=== PATIENT | male | born 1950 | race Caucasian/White ===

== ENCOUNTER 2020-11-02 04:07 | Emergency (ER) | payer MEDICARE ==
--- NOTE | 2020-11-02 04:40 | EDM.PDOC ---
ED HPI GENERAL MEDICAL PROBLEM - General Chief Complaint: Neurological Problem Stated Complaint: MEDICAL VIA TRI Time Seen by Provider: 11/02/20 04:25 Source of Information: Reports: Patient, EMS, Family History Limitations: Reports: No Limitations - History of Present Illness INITIAL COMMENTS - FREE TEXT/NARRATIVE: Yao is a 69-year-old male presenting to the ED via [facility] for evaluation of seizure. Yao is a type I diabetic who is on an insulin pump who was in his usual state of health until 0300 hours this morning when the patient's awoke to him having a grand mal seizure in the bed next to her. She states that his right arm was extended above his head and his left arm was across his chest, he was having gurgling respirations and was absolutely rigid and unresponsive. She states this lasted about 10 minutes. She checked a blood sugar on him during the seizure and it was 101. When EMS arrived they checked a blood sugar and it was 99. The patient does have a history for nocturnal hypoglycemia. He has never had any seizures before and is on no other medications other than the insulin pump. He was wearing a CPAP as he has severe obstructive sleep apnea. The seizure was followed by a post ictal period when the patient was confused and combative. It took a considerable amount of time before the patient started to recognize his . He denies any head trauma, sleep deprivation, new medications, but did get a Covid vaccine several weeks ago and is scheduled for the second dose tomorrow. - Related Data Allergies Allergy/AdvReac Type Severity Reaction Status Date / Time No Known Allergies Allergy Verified 11/02/20 04:13 Home Meds: Home Meds Insulin Aspart [NovoLOG] 60 units SQ DAILY 11/02/20 [History] Past Medical History HEENT History: Reports: Impaired Vision Respiratory History: Reports: Sleep Apnea Other Respiratory History: cpap Musculoskeletal History: Reports: Arthritis Endocrine/Metabolic History: Reports: Diabetes, Type I, Obesity/BMI 30+ Other Endocrine/Metabolic History: dx in 1973 - Infectious Disease History Infectious Disease History: Reports: Chicken Pox, Measles, Mumps, Shingles - Past Surgical History Head Surgeries/Procedures: Reports: None Respiratory Surgical History: Reports: None Endocrine Surgical History: Reports: None Musculoskeletal Surgical History: Reports: None Dermatological Surgical History: Reports: Plastic Surgical Reconstruction/Repair Social & Family History - Tobacco Use Tobacco Use Status *Q: Never Tobacco User Second Hand Smoke Exposure: No - Caffeine Use Caffeine Use: Reports: Coffee - Recreational Drug Use Recreational Drug Use: No ED ROS GENERAL - Review of Systems Review Of Systems: See Below Constitutional: Reports: No Symptoms HEENT: Reports: No Symptoms Respiratory: Reports: No Symptoms Cardiovascular: Reports: No Symptoms Endocrine: Reports: No Symptoms GI/Abdominal: Reports: No Symptoms : Reports: No Symptoms Musculoskeletal: Reports: Back Pain (Muscular), Muscle Pain Skin: Reports: No Symptoms Neurological: Reports: Seizure Psychiatric: Reports: No Symptoms Hematologic/Lymphatic: Reports: No Symptoms Immunologic: Reports: No Symptoms - Physical Exam Exam: See Below Exam Limited By: No Limitations General Appearance: Alert, Lethargic Eye Exam: Bilateral Eye: EOMI, PERRL Nose: Normal Inspection, Normal Mucosa Throat/Mouth: Normal Lips, Normal Teeth, Normal Oropharynx, Normal Voice, No Airway Compromise, Other (Significant bruising of the tongue secondary to biting.) Head Exam: Atraumatic, Normocephalic Neck: Normal Inspection, Supple, Non-Tender, Full Range of Motion Respiratory/Chest: No Respiratory Distress, Lungs Clear, Normal Breath Sounds Cardiovascular: Normal Peripheral Pulses, Regular Rate, Rhythm, No Murmur GI/Abdominal: Normal Bowel Sounds, Soft, Non-Tender Neuro Exam (Abbreviated): Alert, Oriented, CN II-XII Intact, Normal Cognition, No Motor/Sensory Deficits, Slow to Respond Back Exam: Normal Inspection, Full Range of Motion Extremities: Normal Inspection, Normal Range of Motion Psychiatric: Anxious Skin Exam: Warm, Dry, Intact, Normal Color Course - Vital Signs Last Recorded V/S: Last Vital Signs Temp 36.3 C 11/02/20 04:30 Pulse 66 11/02/20 04:30 Resp 13 11/02/20 04:30 BP 134/71 11/02/20 04:30 Pulse Ox 96 11/02/20 04:30 - Orders/Labs/Meds Orders: Active Orders 24 hr Category Date Time Status Head wo Cont [CT] Stat Exams 11/02/20 04:26 Ordered COMPREHENSIVE METABOLIC PN,CMP [CHEM] Stat Lab 11/02/20 04:26 Ordered CREATINE KINASE,CK [CHEM] Stat Lab 11/02/20 04:26 Ordered TROPONIN I [CHEM] Stat Lab 11/02/20 04:26 Ordered Labs: Laboratory Tests 03/07/1511/02/20 11/02/20 Range/Units 04:38 04:38 04:43 WBC 8.7 (4.5-11.0) K/uL RBC 4.94 (4.30-5.90) M/uL Hgb 14.9 (12.0-15.0) g/dL Hct 44.4 (40.0-54.0) % MCV 90 (80-98) fL MCH 30 (27-31) pg MCHC 34 (32-36) % Plt Count 279 (150-400) K/uL Neut % (Auto) 68 H (36-66) % Lymph % (Auto) 20 L (24-44) % [place] % (Auto) 9 H (2-6) % Eos % (Auto) 3 (2-4) % Baso % (Auto) 1 (0-1) % ABG Hemoglobin 15.1 (13.5-18.0) g/dL ABG Oxyhemoglobin 85.2 % ABG Carboxyhemoglobin 1.6 (0.0-1.6) % ABG Methemoglobin 0.9 % VBG pH 7.470 H (7.350-7.450) VBG pCO2 27.9 mm/Hg VBG pO2 50.8 mm/Hg VBG HCO3 20.1 mmol/L VBG Total CO2 17.2 mmol/L VBG O2 Saturation 87.4 VBG O2 Content 18.1 %vol VBG Base Excess -1.8 mm/L O2 Delivery Device Room air Urine Color Yellow (YELLOW) Urine Appearance Cloudy A (CLEAR) Urine pH 6.0 (5.0-8.0) Ur Specific Okay >= 1.030 (1.008-1.030) Urine Protein 30 H (NEGATIVE) mg/dL Urine Glucose (UA) Negative (NEGATIVE) mg/dL Urine Ketones Trace H (NEGATIVE) mg/dL Urine Occult Blood Negative (NEGATIVE) Urine Nitrite Negative (NEGATIVE) Urine Bilirubin Negative (NEGATIVE) Urine Urobilinogen 0.2 (0.2-1.0) EU/dL Ur Leukocyte Esterase Negative (NEGATIVE) Urine RBC 0-5 (0-5) Urine WBC 0-5 (0-5) Ur Epithelial Cells Rare Amorphous Sediment Not seen Urine Bacteria Not seen Urine Mucus Many - Re-Assessments/Exams Free Text/Narrative Re-Assessment/Exam: 11/02/20 04:40 I reviewed the twelve-lead EKG presented by [facility] alicia david normal sinus rhythm with a rate of 73 bpm. Normal SC interval. Normal QRS morphology. No significant ST changes. Impression: Normal EKG. 11/02/20 05:[address] head without contrast. There is no evidence for acute intracranial bleed or loss of west-white ribbon. There is no mass- effect or midline shift. 11/02/20 05:45 I discussed the case with Dr. Jackson, neurologist from [facility] who recommended that the patient follow-up as an outpatient in the neurology clinic for evaluation including an MRI of the brain, an electroencephalogram, and a full neuro work-up. The MRI is to determine if there may be a low-grade glioma. The patient's father apparently had a brainstem glioma. The EEG was to determine if there is underlying epileptiform activity. She gave me a number for the patient to call to schedule the appointment at [phone]. She also recommended that the patient not be loaded on an antiseizure medicine before the evaluation unless he has a second seizure. The patient normally sees Dr. Suggs at [facility]. I discussed with the patient and his indications return to the ED for reevaluation. Departure - Departure Time of Disposition: 05:56 Disposition: Home, Self-Care 01 Clinical Impression: Grand mal seizure Diabetes type 1, controlled Qualifiers: Diabetes mellitus complication status: without complication Qualified Code(s): E10.9 - Type 1 diabetes mellitus without complications - Discharge Information *PRESCRIPTION DRUG MONITORING PROGRAM REVIEWED*: Not Applicable *COPY OF PRESCRIPTION DRUG MONITORING REPORT IN PATIENT REINA: Not Applicable Instructions: Seizure, Adult Referrals: Saul Suggs MD [Primary Care Provider] - Forms: ED Department Discharge Care Plan Goals: I discussed the case with Dr. Jackson, neurologist from [facility] who recommended that the patient follow-up as an outpatient in the neurology clinic for evaluation including an MRI of the brain, an electroencephalogram, and a full neuro work-up. The MRI is to determine if there may be a low-grade glioma. The EEG was to determine if there is underlying epileptiform activity. She gave me a number for the patient to call to schedule the appointment at [phone]. She also recommended that the patient not be loaded on an antiseizure medicine before the evaluation unless he has a second seizure. CT of the brain was pushed to [facility]'s radiology system so that the just could review the images. Again there was no evidence for an acute intracranial abnormality including bleeding, mass, or midline shift. Should Yao have a second seizure, please call [phone] and return to the ED for reevaluation. Sepsis Event Note (ED) - Evaluation Sepsis Screening Result: No Definite Risk - Focused Exam Vital Signs: Vital Signs Temp Pulse Resp BP Pulse Ox 11/02/20 04:30 36.3 C 66 13 134/71 96 11/02/20 04:16 36.3 C 66 13 134/71 96 - Problem List & Annotations (1) Diabetes type 1, controlled SNOMED Code(s): 08881307, 977703324 Code(s): E10.9 - TYPE 1 DIABETES MELLITUS WITHOUT COMPLICATIONS Status: Chronic Priority: Medium Current Visit: Yes Qualifiers: Diabetes mellitus complication status: without complication Qualified Code(s): E10.9 - Type 1 diabetes mellitus without complications (2) Grand mal seizure SNOMED Code(s): 94130351 Code(s): G40.409 - OTH GENERALIZED EPILEPSY, NOT INTRACTABLE, W/O STAT EPI Status: Acute Priority: High Current Visit: Yes - Problem List Review Problem List Initiated/Reviewed/Updated: Yes - My Orders Last 24 Hours: My Active Orders 11/02/20 04:26 Head wo Cont [CT] Stat COMPREHENSIVE METABOLIC PN,CMP [CHEM] Stat CREATINE KINASE,CK [CHEM] Stat TROPONIN I [CHEM] Stat - Assessment/Plan Last 24 Hours: My Active Orders 11/02/20 04:26 Head wo Cont [CT] Stat COMPREHENSIVE METABOLIC PN,CMP [CHEM] Stat CREATINE KINASE,CK [CHEM] Stat TROPONIN I [CHEM] Stat
--- NOTE | 2020-11-02 05:22 | CRLCT ---
Indication: Seizure Technique: Nonenhanced axial CT imaging through the head. Sagittal and coronal reconstructions are provided. Comparison: None Findings: There is no intracranial hemorrhage, edema, or mass effect. Carmona-white matter differentiation is preserved. The ventricles are normal in size. The basal cisterns are patent. The calvarium is intact. The visualized paranasal sinuses and mastoid air cells are aerated. Impression: No acute intracranial process. Please note that all CT scans at this facility use dose modulation, iterative reconstruction, and/or weight-based dosing when appropriate to reduce radiation dose to as low as reasonably achievable. Dictated by Lily Wilkins MD @ Nov 02 2020 5:18AM Signed by Dr. Lily Wilkins @ Nov 02 2020 5:21AM
== END 2020-11-02 06:11 | disposition home or self-care (01) ==
LOC: JP.ED 04:07
DX: R56.9 Unspecified convulsions (principal); E10.9 Type 1 diabetes mellitus without complications; E66.9 Obesity, unspecified; Z68.30 Body mass index [BMI] 30.0-30.9, adult
CPT/HCPCS: 36415; 70450; 80053; 81001; 82550; 82803; 84484; 85025; 99283; 99285-25